=== PATIENT | female | born 1960 | race Caucasian/White ===

== ENCOUNTER 2025-04-06 09:32 | Outpatient (AMB) | payer BC, SELFPAY ==
--- NOTE | 2025-04-06 09:37 | A.OFFVIS_ITS ---
Intake Visit Reasons: 6 month follow up Allergies Penicillins Allergy (Unknown, Verified 04/06/25 09:38) Unknown Medication List - Last Reconciled 04/06/25 by Ashia Fitch CNP aspirin 1 tab PO BID atorvastatin 20 mg PO DAILY docusate sodium 100 mg PO BID galcanezumab-gnlm (Emgality Pen) mg subcut QMONTH losartan 50 mg PO DAILY naproxen 500 mg PO BID PRN ondansetron 4 mg PO Q8H PRN pregabalin 300 mg PO BID verapamil ER 120 mg PO DAILY zolmitriptan take 1 tab at onset of headache; if no relief, may repeat 1 tab after at least 2 hrs; max = 2 tabs/24 hrs PO 30 days HPI Comments Details: 64-year-old woman, a high school assistant principal, with depression, RLS, and chronic intractable migraine. Emgality and verapamil combination was helping. She was doing okay. Headaches were stable with current medications. Zolmitriptan as needed helped. She usuaully had to take medication between 7-12x/month, up to 15x/month on rare occasion. Sleep was okay.? Review of Systems Const Denies chills, Denies daytime sleepiness, Denies difficulty sleeping, Denies fatigue, Denies fever(s), Denies frequent falls, Reports headache(s), Denies increased appetite, Denies poor appetite, Denies snoring, Denies weakness, Denies weight gain and Denies weight loss Eyes Denies loss of vision ENT Denies vertigo, Denies dizziness and Reports headache(s) Card Denies chest pain at rest, Denies chest pain with activity, Denies syncope, Denies leg edema and Denies palpitations Resp Denies snoring GI Denies constipation, Denies heartburn, Denies diarrhea and Denies nausea Denies urinary frequency, Denies urinary incontinence and Denies urinary urgency Musc Denies abnormal gait, Denies numbness and Denies tingling Skin/Breast Denies dry skin and Denies rash Neuro Denies abnormal gait, Denies vertigo, Denies dizziness, Denies syncope, Denies frequent falls, Reports headache(s), Denies lack of coordination, Denies loss of vision, Denies memory loss, Denies numbness, Denies restless legs, Denies seizure-like activity, Denies tingling, Denies paresthesias, Denies tremor(s) and Denies weakness Psych Denies anxiety, Denies depression, Denies auditory hallucinations, Denies memory loss, Denies visual hallucinations and Denies suicidal ideation Endo Denies fatigue and Denies palpitations Physical Exam Const Other: General Appearance:? normal, in no acute distress. Skin:? no rashes, no significant birthmarks. Heart:? S1, S2 normal, no murmurs. Lungs:? clear anteriorly and posteriorly. Extremities:? no edema. Psych:? alert, oriented, cognitive function intact, cooperative with exam. Neuro Other: Mental Status:?Normal attention, orientation, memory and affect.? Cranial Nerves:?Pupils are equal, round and reactive to light. External occular muscles are intact. Visual merida are full. Face is symmetrical. Facial sensations are normal. Tongue is midline. Palate elevates symmetrically. Shoulder shrugging is normal. Hearing to bedside conversation is normal. Sensory Exam:?....? Coordination:?No ataxia,?no titubation.? Gait Exam: Within normal limits. Extrapyramidal System:?No tremor, rigidity with normal facial expressions.? Pronator Drift:?Not present.? Involuntary Movements:?No tremors seen.? Speech:?Normal.? Assessment & Plan Assessment & Plan (1) Migraine: Code(s): G43.909 - Migraine, unspecified, not intractable, without status migrainosus Category: Medical Qualifiers: Migraine type: unspecified Status migrainosus presence: without status migrainosus Intractability: not intractable Qualified Code(s): G43.909 - Migraine, unspecified, not intractable, without status migrainosus Plan: Continue Emgality Solution Auto-injector 120mg/mL subcutaneous monthly. Continue verapamil ER 120mg 1 tablet daily. Continue zolmitriptan 5mg 1 tablet as needed for migraine. (2) Restless leg syndrome: Code(s): G25.81 - Restless legs syndrome Category: Medical Plan Meds tried: Topiramate, Propranalol, Gabapentin, pregabilin, Zomig, Butalbital, Imitrex, Relpax, Ajovy, Aimovig, Emgality, Verapamil. Medications: New galcanezumab-gnlm (Emgality Pen) 120 mg subcut QMONTH 1 ea 5RF 30 days Refilled verapamil ER 120 mg PO DAILY 90 caps 1RF zolmitriptan take 1 tab at onset of headache; if no relief, may repeat 1 tab after at least 2 hrs; max = 2 tabs/24 hrs PO 10 tabs 5RF 30 days Coding Level of Care Code Est Pt Level 4 (27447) Diagnoses Migraine without status migrainosus, not intractable, unspecified migraine type G43.909 Migraine type: unspecified Status migrainosus presence: without status migrainosus Intractability: not intractable Restless leg syndrome G25.81
--- OUTSIDE RECORDS SUMMARY | 2025-04-06 10:44 | XMS_ITS | Patient Health Record ---
Author Organization [facility] Address [address] [place] [address] Care Team Providers Care Toolroom Checker Name Role Phone Debra Castillo Primary Care Provider Unavailabl e Allergies Allergen (clinical drug ingredient) Drug/Non Drug Allergy documented on EMR Reaction Allergy Type Onset Date Status Penicillin Unknown Drug Allergy Active Reason For Referral No Information Medications Medication SIG (Take, Route, Frequency, Duration) Notes Start Date End Date Status Cozaar 25 MG 1 tablet Orally Once a day Active Emgality 120 MG/ML as directed Subcutaneous Active Zoloft 100 MG 1 tablet Orally Once a day Active Requip 0.5 mg tab, take 1 tab by mouth daily Active ZOLMitriptan 5 MG 1 tablet Orally Once a day Active Naproxen 500 MG TAKE 1 TABLET WITH FOOD OR MILK NEEDED TWICE A DAY ORALLY 30 DAY(S); Duration: 30 Active Vitamin D3 4000 units by mouth daily Active Betamethasone Dipropionate 0.05 % as directed Topically PRN Active Plan Of Treatment Pending Test Test Name Order Date X ray : Ankle, right, 3 views 12/08/2020 Insurance Providers Payer Name Payer Address Payer Phone Subscriber Number Group Number Insured Name Patient Relationship to Insured Coverage Start Date Coverage End Date [facility] [address] [place] [address] [id number] Jose JuanOdessa brionesi Self - patient is the insured Medical (General) History Medical History History ICD Code Cervicalgia Depression Hyperlipidemia Migraines Palpitations Surgical History Surgery Date(Month/Year) breast biopsy x 2 tubal ligation
--- OUTSIDE RECORDS SUMMARY | 2025-04-06 10:44 | XMS_ITS | Clinical Summary ---
Author Organization [facility] Address [address] [place] [phone] Phone Care Team Providers Care Ammunition Storage Superintendent Name Role Phone Ibrahima Gaitan MD Primary Care Provider [phone] Allergies Active Allergy Reactions Criticality Noted Date Comments Lisinopril Cough 03/17/2020 Penicillins Unknown 10/09/2005 Pt had a reaction as a child, but does not recall what reaction was. ?? reaction Medications atorvastatin calcium (ATORVASTATIN ORAL) Take by mouth. Active losartan (COZAAR) 50 mg tablet Take 1 Tablet by mouth daily. Active pregabalin (LYRICA) 150 mg capsule Take 1 Capsule by mouth daily. 3 once a day at bedtime Active verapamiL (CALAN) 120 mg tablet Take 1 Tablet by mouth daily. Active zolmitriptan (ZOMIG ORAL) Take 5 mg by mouth 1 (one) time each day if needed. 08/15/2018 Active Active Problems Problem Noted Date Diagnosed Date Goiter 11/10/2011 Surgical History Surgery Date Site/Laterality Comments OTHER SURGICAL HISTORY PROCEDURE: [place] PALATOP CL PALATE SOFT&/HARD PALATE ONLY TUBAL LIGATION PROCEDURE: HISTORICAL TUBAL LIGATION STEREOTACTIC CORE BIOPSY 06/18/1996 - 06/17/1997 Right BREAST BIOPSY Medical History Medical History Date Comments Frequent headaches DX:Frequent h eadaches Disease of thyroid gland Migraine Hypothyroidism Family History Medical History Relation Name Comments Heart attack Father Breast cancer Mother Seema Colon cancer Neg Hx Kidney cancer Neg Hx Ovarian cancer Neg Hx Pancreatic cancer Neg Hx Prostate cancer Neg Hx Uterine cancer Neg Hx Relation Name Status Comments Daughter 1 Nancy Alive Daughter 2 Violet Alive Daughter 3 Lachelle Alive Father (Age 65) Maternal Grandfather Maternal Grandmother Mother Seema (Age 37) Paternal Grandfather Paternal Grandmother Sister Alive half Social History Tobacco Use Types Packs/Day Years Used Date Smoking Tobacco: Never Smokeless Tobacco: Never Tobacco Cessation:Counseling Given: Not Answered Alcohol Use Standard Drinks/Week Comments No 0 (1 standard drink = 0.6 oz pur e alcohol) Housing Instability Answer Date Recorde d Are you worried that in the next 2 months you may not have stable housing? No 09/07/2024 Food Access & Nutrition Answer Date Rec orded Do you have access to a vari ety of food including fruits and vegetables? Yes 09/07/2024 Access to Healthcare Answer Date Record ed Within the last 3 months, ho w many times did you visit the emergency department for your medical care? 0 09/07/2024 Health Literacy Answer Date Recorded How often do you need to hav e someone help you when you read instructions, pamphlets, or other written material from your doctor or pharmacy? Never 09/07/2024 Caregiver: How often do you need to have someone help you when you read instructions, pamphlets, or other written material from your doctor or pharmacy? Not on file 09/07/2024 Financial Risk Answer Date Recorded How hard is it for you to pa y for the very basics like food, housing, medical care, and air conditioning / heating? Not very hard 09/07/2024 Transportation Answer Date Recorded Has the lack of transportati on kept you from meetings, work, or from getting things needed for daily living? No Has the lack of transportati on kept you from medical appointments or from getting medications? No 09/07/2024 Social Isolation Answer Date Recorded How often do you feel lonely or isolated from th ose around you? Never 09/07/2024 Food Risk Answer Date Recorded Within the past 12 months we worried whether our food would run out before we got money to buy more. Never true 09/07/2024 Within the past 12 months th e food we bought just didn't last and we didn't have money to get more. Never true 09/07/2024 Dependent Care Answer Date Recorded Do you need help finding or paying for care for your loved ones. For example, child welfare social worker or elderly care for an older adult? No 09/07/2024 Education Answer Date Recorded Do you think completing more education or training, like finishing a GED, going to college, or learning a trade, would be helpful for you? No 09/07/2024 Employment and Income Answer Date Recor ded During the last four weeks, have you been actively looking for work? No 09/07/2024 Living Situation Answer Date Recorded What is your living situation? Unrecognized valu e 09/07/2024 Comments No Sex and Gender Information Value Date Recorded Sex Assigned at Not on file Legal Sex Female 3:30 PM EST Gender Identity Not on file Sexual Orientation Not on file Obstetrics History Para Term AB IAB SAB Ectopic Multiple Livin g Live Births 3 3 3 0 0 0 3 3 Date Outcome GA Total Labor Labor/2nd/3rd Weight Sex Type Anes PTL Marlyn A1 A5 Name Clin 1983 Term 40w 0d F Vag-S pont Living [facility] 1985 Term 40w 0d F Vag-S pont Living [place] 1995 Term 40w 0d F Vag-S pont Living Lachelle Last Filed Vital Signs Vital Sign Reading Time Taken Comments Blood Pressure 124/82 09/10/2024 10:22 AM EDT Pulse 62 09/10/2024 10:19 AM EDT Temperature - - Respiratory Rate - - Oxygen Saturation - - Inhaled Oxygen Concentration - - Weight 81.6 kg (180 lb) 04/23/2024 9:30 AM EST Height 162.6 cm (5' 4 ) 09/10/2024 10:19 AM EDT Body Mass Index 35.15 04/23/2024 9:30 AM EST Plan of Treatment Upcoming Encounters Date Type Department Care Team (Late st Contact Info) Description 05/04/2025 10:15 AM EST Appointment [facility] [address] [phone] Health Maintenance Due Date Last Done Comments Colorectal Cancer Screening: Colonoscopy 1960 Pneumococcal Vaccine: 50+ Years (1 of 1 - PCV) 2010 Zoster Vaccines (1 of 2) 2010 HIV Screening 05/17/2022 Hypertension/CHF/CAD Annual BMP Blood Test 04/23/2024 07/19/2022, 03/10/2020, 02/12/2019, Additional history exists Influenza Vaccine (#1) 2025 , 05/02/2022, 03/18/2020 Social Influencers of Health Screening 09/07/2025 09/07/2024 Breast Cancer Screening 04/23/2026 04/23/20 24, 04/16/2023, 04/20/2021, Additional history exists Cervical Cancer Screening: HPV 07/04/2028 07/04/2023 Cholesterol Screening (Lipid Panel) 11/19/2028 11/20/2023 DTaP,Tdap,and Td Vaccines (3 - Td or Tdap) 02/19/2029 02/19/2019, 04/14/2009 RSV Immunization Adult Patients (1 - 1-dose 75+ series) 2035 Hepatitis C Screening Completed 09/30/2021 COVID-19 Vaccine Completed 06/27/2024, , 11/19/2021, Additional history exists Depression Screening Completed 09/07/2024 HIB Vaccines Aged Out No longer eligi ble based on patient's age to complete this topic HPV Vaccines Aged Out No longer eligi ble based on patient's age to complete this topic Hepatitis A Vaccines Aged Out No long er eligible based on patient's age to complete this topic Hepatitis B Vaccines Aged Out No long er eligible based on patient's age to complete this topic IPV Vaccines Aged Out No longer eligi ble based on patient's age to complete this topic MMR Vaccines Aged Out No longer eligi ble based on patient's age to complete this topic Meningococcal ACWY Vaccine Aged Out N o longer eligible based on patient's age to complete this topic Meningococcal B Vaccine Aged Out No l onger eligible based on patient's age to complete this topic RSV Immunization Patients Under 20 months Aged Out No longer eligible based on patient's age to complete this topic Varicella Vaccines Aged Out No longer eligible based on patient's age to complete this topic Procedures Procedure Name Priority Date/Time Associated Diagnosis Comments MG MAMMO DIGITAL SCREENING W CECILIO BILAT Routine 04/23/2024 9:57 AM EST Encounter for screening mammogram for breast cancer HM HPV Routine 07/04/2023 from Last 3 Months or Most Recently Relevant to Health Maintenance Results * MG Mammo Digital Screening w Cecilio bilat (04/23/2024 9:57 AM EST) Anatomical Region Laterality Modality Breast Bilateral Mammography 04/23/2024 11:4 7 AM EST Impressions 04/23/2024 11:55 AM EST No mammographic evidence of malignancy. No suspicious interval change. A negative mammogram in the presence of a clinically suspicious palpable abnormality does not preclude the possibility of malignancy or alter the indications for biopsy. ASSESSMENT: BI-RADS 2: BENIGN RECOMMENDATION(S): 1: Routine screening mammogram BILATERAL in 1 year. -------- FINAL REPORT -------- Dictated By: Guy López Dictated Date: 04/23/2024 11:47 ET Assigned Physician: Guy López Reviewed and Electronically Signed By: Guy López Signed Date: 04/23/2024 11:55 ET Workstation ID: [id number] Transcribed By: Self Edit Transcribed Date: 04/23/2024 11:47 ET Narrative 04/23/2024 11:55 AM EST EXAM: SCREENING MAMMOGRAPHY, BILATERAL HISTORY: SCREENING. Mother with history of breast cancer. Previous right breast biopsy, 1996 COMPARISON: 04/16/2023, 04/14/2022, 04/20/2021, 04/19/2021, 04/05/2020 TECHNIQUE: Synthesized CC and MLO projections of each breast. Tomosynthesis of each breast in the CC and MLO projections. ADDITIONAL IMAGING: None Computer-aided detection was employed with the [employer] AI 3-D. TISSUE DENSITY: The breasts are heterogeneously dense, which may obscure small masses. (BI-RADS category C) FINDINGS: RIGHT BREAST: No suspicious mass. No suspicious calcification. No distortion. There is a stable circumscribed 0.8 cm equal density oval mass in the 10 o'clock position. LEFT BREAST: No suspicious mass. No suspicious calcification. No distortion. No additional suspicious left breast findings Procedure Note Guy López MD - 04/23/2024 EXAM: SCREENING MAMMOGRAPHY, BILATERAL HISTORY: SCREENING. Mother with history of breast cancer. Previous right breast biopsy, 1996 COMPARISON: 04/16/2023, 04/14/2022, 04/20/2021, 04/19/2021, 04/05/2020 TECHNIQUE: Synthesized CC and MLO projections of each breast.Tomosynthesis of each breast in the CC and MLO projections. ADDITIONAL IMAGING: None Computer-aided detection was employed with the [employer] AI 3-D. TISSUE DENSITY: The breasts are heterogeneously dense, which may obscuresmall masses. (BI-RADS category C) FINDINGS: RIGHT BREAST: No suspicious mass. No suspicious calcification. No distortion. There josette stable circumscribed 0.8 cm equal density oval mass in the 10 o'clockposition. LEFT BREAST: No suspicious mass. No suspicious calcification. No distortion. Noadditional suspicious left breast findings IMPRESSION: No mammographic evidence of malignancy. No suspicious interval change. A negative mammogram in the presence of a clinically suspicious palpableabnormality does not preclude the possibility of malignancy or alter theindications for biopsy. ASSESSMENT: BI-RADS 2: BENIGN RECOMMENDATION(S): 1: Routine screening mammogram BILATERAL in 1 year. -------- FINAL REPORT -------- Dictated By: Guy López Dictated Date: 04/23/2024 11:47 ET Assigned Physician: Guy López Reviewed and Electronically Signed By: Guy López Signed Date: 04/23/2024 11:55 ET Workstation ID: [id number] Transcribed By: Self Edit Transcribed Date: 04/23/2024 11:47 ET Ibrahima Gaitan MD IMG BI PROCEDURES Final Result * Cervical Cancer Screening: HPV (07/04/2023) Cervical Cancer Screening: HPV negative interpretation abstracted Historical Provider HEALTH MAINTENANCE Final Result from Last 3 Months or Most Recently Relevant [place] [id number] [place] - [place] ([place]) Care Teams Ammunition Storage Superintendent Relationship Specialty Start Date End Date Ibrahima Gaitan MD [facility] [place] [phone] PCP - General Family Medicine 04/22/24
== END 2025-04-06 09:46 | disposition home or self-care (01) ==
LOC: HO.HSM 09:33
PROVIDERS: PCP Family Medicine; Visit Provider Registered Nurse
DX: G43.909 Migraine, unspecified, not intractable, without status migrainosus (principal); G25.81 Restless legs syndrome
CPT/HCPCS: 99214